=== PATIENT | male | born 1975 | race Caucasian/White ===

== ENCOUNTER 2017-07-13 15:12 | Emergency (ER) | payer BC ==
[~2017-07-13] VITALS: Ht 180.3 cm; Wt 95.3 kg
[2017-07-13] MEDS ORDERED: VALACYCLOVIR HCL 500 MG TABLET PO ONE (15:30)
[2017-07-13] MEDS ORDERED: predniSONE 20 MG TABLET PO ONE (15:30)
--- NOTE | 2017-07-13 15:30 | NUR ---
PT CAME FROM HOME WITH C/O UNABLE TO CONTROL ONE ISDE OF HIS MOUTH AND ONE EYE. POSSIBLE GONZALEZ'S PALSY. NEURP TEST DONE. SEEN BY MD FOR EVAL. VSS. SAFETY AND COMFORT MEASURES PROVIDED. WILL MONITOR.
[2017-07-13] MEDS ORDERED: predniSONE 20 MG TABLET ONE (15:35)
[2017-07-13] MEDS ORDERED: VALACYCLOVIR HCL 500 MG TABLET ONE (15:35)
--- NOTE | 2017-07-13 15:45 | NUR ---
PT MEDICATED ORDERED.
--- NOTE | 2017-07-13 16:05 | NUR ---
PT TAKEN TO CT.
--- NOTE | 2017-07-13 16:42 | NUR ---
Patient discharged to home in stable condition. Written and verbal after care instructions given. Patient verbalizes understanding of instruction.
[2017-07-13 16:45] VITALS: BP 110/88
== END 2017-07-13 16:46 | disposition home or self-care (01) ==
LOC: ER 15:14
DX: G51.0 Bell's palsy (principal); E78.00 Pure hypercholesterolemia, unspecified; Z88.6 Allergy status to analgesic agent
CPT/HCPCS: 70450; 99284; A4606; J7512; Z7610